=== PATIENT | female | born 1975 | race African-American/Black ===

== ENCOUNTER 2018-06-08 13:05 | Inpatient (IN) | payer BC, OTHER ==
[2018-06-08] MEDS: SOD CHLORIDE 0.45% 1,000 ML IV (01:30)
[2018-06-08 15:35] LABS: WHITE BLOOD COUNT 6.7 10^3/ul (4.8-10.8)
[2018-06-08 15:35] LABS: ABNORMAL IP MESSAGE 1; HEMATOCRIT 22.5 % (37.0-47.0); MEAN CORPUSCULAR HEMOGLOBIN 15.1 pg (29.0-33.0); MEAN CORPUSCULAR HGB CONC 24.9 g/dl (32.0-37.0); MEAN CORPUSCULAR VOLUME 60.5 fl (82.0-101.0); PLATELET COUNT 284 10^3/UL (140-415); RED BLOOD COUNT 3.72 10^6/ul (4.20-5.40); RED CELL DISTRIBUTION WIDTH 21.7 % (11.5-14.5)
[2018-06-08 15:38] LABS: ADD MAN DIFF? YES; HEMOGLOBIN 5.6 g/dl (12.0-16.0); POSITIVE DIFF @See below
[2018-06-08 15:39] LABS: PATH REVIEW? YES
[2018-06-08 16:05] LABS: IRON 10 ug/dl (35-150)
[2018-06-08 16:14] LABS: % IRON SATURATION 3 % SAT (22-52); TOTAL IRON BINDING CAPACITY 378 ug/dl (241-421)
[2018-06-08] MEDS: SOD CHLORIDE 0.9% 1,000 ML IV (16:16)
[2018-06-08 16:18] LABS: ALANINE AMINOTRANSFERASE 26 IU/L (13-69); ALBUMIN 3.6 g/dl (3.3-4.9); ALBUMIN/GLOBULIN RATIO 1.16; ALKALINE PHOSPHATASE 58 IU/L (42-121); ANION GAP 13 (8-16); ASPARTATE AMINO TRANSFERASE 24 IU/L (15-46); BILIRUBIN,INDIRECT 0.2 mg/dl (0-1.1); BILIRUBIN,TOTAL 0.2 mg/dl (0.2-1.3); BLOOD UREA NITROGEN 10 mg/dl (7-20); CARBON DIOXIDE 28 mmol/L (21-31); CHLORIDE 105 mmol/L (97-110); GLUCOSE 93 mg/dl (70-220); LACTATE DEHYDROGENASE 652 IU/L (313-618); POTASSIUM 3.8 mmol/L (3.5-5.1); SODIUM 142 mmol/L (135-144); TOTAL PROTEIN 6.7 g/dl (6.1-8.1)
[2018-06-08] MEDS ORDERED: NA PHOSPHATE/BIPHOS 133 ML ENEMA PR (16:30)
[2018-06-08] MEDS ORDERED: LORAZEPAM 2 MG INJ IV (16:30)
[2018-06-08] MEDS ORDERED: MAGNESIUM HYDROXIDE 30ML CUP PO (16:30)
[2018-06-08] MEDS ORDERED: NACL 0.9% 3 ML SYG IV (16:30)
[2018-06-08] MEDS ORDERED: ONDANSETRON 4 MG INJ IV (16:30)
[2018-06-08] MEDS ORDERED: ACETAMINOPHEN 325 MG TAB PO (16:30)
[2018-06-08] MEDS ORDERED: NITROGLYCERIN (SL) 0.4 MG TAB SL (16:30)
[2018-06-08] MEDS ORDERED: ALBUTEROL/IPRATROPIUM (NEB) 3 ML AMP HHN (16:30)
[2018-06-08] MEDS ORDERED: hydrALAzine 20 MG INJ IV (16:30)
[2018-06-08] MEDS ORDERED: DOCUSATE SODIUM 100 MG CAP PO (16:30)
[2018-06-08 16:52] LABS: FERRITIN 7.3 ng/ml (6.2-137.0)
[2018-06-08 16:55] LABS: FREE T4 (FREE THYROXINE) 1.25 ng/dl (0.64-1.79)
[2018-06-08 17:28] LABS: ANISOCYTOSIS 3+ (0-0); EOSINOPHILS % (M) 3 % (0-7); GIANT THROMBO% (M) 3 % (0-0); LYMPHOCYTES #M 1.1 10^3/ul (0.8-2.9); LYMPHOCYTES % (M) 17 % (15-51); MICROCYTOSIS 3+ (0-0); MONOCYTE #M 0.4 10^3/ul (0.3-0.9); MONOCYTES % (M) 6 % (0-11); OVALOCYTES 1+ (0-0); PLATELET MORPHOLOGY COMMENT @See below; POIKILOCYTOSIS 1+ (0-0); POLYCHROMASIA 1+ (0-0); SEGMENTED NEUTROPHILS (M) % 74 % (39-77); SMUDGE%M 19 % (0-0)
[2018-06-08 17:28] LABS: IMMEDIATE SPIN CROSSMATCH 1 3
[2018-06-08] MEDS: ENOXAPARIN 60 MG/0.6 ML SYG SC (17:33)
[2018-06-08 17:50] LABS: INR 1.06; PROTIME 13.9 Sec (11.9-14.9); PT RATIO 1.1
[2018-06-08 17:51] LABS: PARTIAL THROMBOPLASTIN TIME 35.1 Sec (25.0-35.0)
[2018-06-08] MEDS: SOD FERRIC GLUC COMPLX 125 MG in SOD CHLORIDE 0.9% 100 ML IVPB (19:00)
[2018-06-09] MEDS: morphine 2 MG INJ IV (03:02)
[2018-06-09] MEDS: SOD CHLORIDE 0.45% 1,000 ML IV ×2 (05:30→18:16)
[2018-06-09 06:52] LABS: ADD MAN DIFF? NO
[2018-06-09 07:05] LABS: ABNORMAL IP MESSAGE 1; BASOPHIL # 0.1 10^3/ul (0.0-0.1); BASOPHILS % 1.2 % (0.0-2.0); EOSINOPHILS # 0.3 10^3/ul (0.0-0.5); HEMATOCRIT 24.5 % (37.0-47.0); LYMPHOCYTES # 1.5 10^3/ul (0.8-2.9); LYMPHOCYTES % 23.7 % (15.0-51.0); MEAN CORPUSCULAR HEMOGLOBIN 17.3 pg (29.0-33.0); MEAN CORPUSCULAR HGB CONC 26.9 g/dl (32.0-37.0); MEAN CORPUSCULAR VOLUME 64.3 fl (82.0-101.0); MEAN PLATELET VOLUME 9.7 fl (7.4-10.4); MONOCYTE # 0.6 10^3/ul (0.3-0.9); MONOCYTES % 9.8 % (0.0-11.0); NEUTROPHIL # 3.9 10^3/ul (1.6-7.5); PLATELET COUNT 283 10^3/UL (140-415); RED BLOOD COUNT 3.81 10^6/ul (4.20-5.40); RED CELL DISTRIBUTION WIDTH 25.1 % (11.5-14.5)
[2018-06-09 07:05] LABS: WHITE BLOOD COUNT 6.5 10^3/ul (4.8-10.8)
[2018-06-09 07:16] LABS: POSITIVE DIFF @See below
[2018-06-09 07:22] LABS: HEMOGLOBIN 6.6 g/dl (12.0-16.0)
[2018-06-09 07:23] LABS: HEMOGLOBIN A1C 5.7 % (0-5.9)
[2018-06-09 07:29] LABS: RETICULOCYTE RBC 3.81
[2018-06-09 07:29] LABS: RETICULOCYTE COUNT # 0.026 X10^6 (0.020-0.110); RETICULOCYTE COUNT % 0.7 % (0.5-1.5)
[2018-06-09 07:32] LABS: CHOL/HDL RATIO 2.8 RATIO; HDL CHOLESTEROL 31 mg/dl (34-88); LDL CHOLESTEROL,CALCULATED 40 mg/dl; TRIGLYCERIDES 86 mg/dl (0-149)
[2018-06-09 07:32] LABS: CHOLESTEROL 88 mg/dl (100-200)
[2018-06-09 08:04] LABS: URIC ACID 4.5 mg/dl (3.1-7.9)
[2018-06-09 08:05] LABS: ANION GAP 14 (8-16); BLOOD UREA NITROGEN 9 mg/dl (7-20); CALCIUM 8.5 mg/dl (8.4-10.2); CARBON DIOXIDE 25 mmol/L (21-31); CHLORIDE 110 mmol/L (97-110); CREATININE 0.62 mg/dl (0.44-1.00); GLUCOSE 95 mg/dl (70-220); MAGNESIUM 2.1 mg/dl (1.7-2.5); PHOSPHORUS 4.4 mg/dl (2.5-4.9); POTASSIUM 4.1 mmol/L (3.5-5.1); SODIUM 145 mmol/L (135-144)
[2018-06-09 09:07] LABS: ADD MAN DIFF? NO
[2018-06-09 09:09] LABS: ERYTHROCYTE SEDIMENTATION RATE 40 mm/Hr (0-20)
[2018-06-09 09:11] LABS: FOLATE 10.4 ng/ml (2.8-20.0)
[2018-06-09 09:12] LABS: WHITE BLOOD COUNT 6.1 10^3/ul (4.8-10.8)
[2018-06-09 09:12] LABS: ABNORMAL IP MESSAGE 1; BASOPHIL # 0.1 10^3/ul (0.0-0.1); EOSINOPHILS # 0.3 10^3/ul (0.0-0.5); EOSINOPHILS % 4.4 % (0.0-7.0); HEMATOCRIT 25.4 % (37.0-47.0); LYMPHOCYTES # 1.2 10^3/ul (0.8-2.9); LYMPHOCYTES % 19.5 % (15.0-51.0); MEAN CORPUSCULAR HEMOGLOBIN 17.5 pg (29.0-33.0); MEAN CORPUSCULAR HGB CONC 27.2 g/dl (32.0-37.0); MEAN CORPUSCULAR VOLUME 64.5 fl (82.0-101.0); MEAN PLATELET VOLUME 9.7 fl (7.4-10.4); MONOCYTE # 0.6 10^3/ul (0.3-0.9); NEUTROPHIL # 3.9 10^3/ul (1.6-7.5); NEUTROPHILS % 64.8 % (39.0-77.0); PLATELET COUNT 292 10^3/UL (140-415); RED BLOOD COUNT 3.94 10^6/ul (4.20-5.40); RED CELL DISTRIBUTION WIDTH 24.5 % (11.5-14.5)
[2018-06-09 09:14] LABS: POSITIVE DIFF @See below
[2018-06-09 09:16] LABS: HEMOGLOBIN 6.9 g/dl (12.0-16.0)
[2018-06-09] MEDS: ACETAMINOPHEN 325 MG TAB PO (09:30)
[2018-06-09] MEDS: ENOXAPARIN 100 MG/ML SYG SC ×2 (10:28→21:13)
[2018-06-09 10:37] LABS: CANCER ANTIGEN 125 10.2 U/ml (0.0-35.0)
[2018-06-09 10:41] LABS: CANCER ANTIGEN 19-9 1.7 U/ml (0.0-37.0)
[2018-06-09 11:14] LABS: ADD UMIC YES; UR ASCORBIC ACID NEGATIVE (NEGATIVE); UR BACTERIA FEW /HPF (NONE SEEN); UR BILIRUBIN (Dip) NEGATIVE (NEGATIVE); UR BLOOD (Dip) 1+ mg/dL (NEGATIVE); UR CLARITY TURBID (CLEAR); UR COLOR AMBER (YELLOW); UR GLUCOSE (Dip) NEGATIVE (NEGATIVE); UR KETONES (Dip) NEGATIVE (NEGATIVE); UR LEUKOCYTE ESTERASE (Dip) 1+ Leu/ul (NEGATIVE); UR MUCUS MANY /HPF (NONE SEEN); UR NITRITE (Dip) NEGATIVE (NEGATIVE); UR RBC 5 /HPF (0-5); UR SPECIFIC GRAVITY (Dip) 1.025 (1.003-1.030); UR SQUAMOUS EPITHELIAL CELL MODERATE /HPF (FEW); UR TOTAL PROTEIN (Dip) 2+ mg/dl (NEGATIVE); UR UROBILINOGEN (Dip) NEGATIVE (NEGATIVE); UR WBC 45 /HPF (0-5)
[2018-06-09] MEDS ORDERED: LIDOCAINE 1% (MDV) 20 ML INJ (14:34)
[2018-06-09] MEDS ORDERED: HEPARIN 1000 UNITS/NS (A-LINE) 1,000 ML (14:35)
[2018-06-09] MEDS ORDERED: IODIXANOL LOCM 100 ML BTL (14:35)
[2018-06-09] MEDS ORDERED: FENTAnyl 50 MCG/ML VIAL (14:39)
[2018-06-09] MEDS ORDERED: MIDAZOLAM 1 MG/ML 2 ML INJ (14:39)
[2018-06-09] MEDS: BARIUM SULF 2% 450 ML BTL (BERRY SMOOTHIE) PO (15:38)
[2018-06-09] MEDS: SOD FERRIC GLUC COMPLX 125 MG in SOD CHLORIDE 0.9% 100 ML IVPB (16:48)
[2018-06-09] MEDS: IOHEXOL 300MG/ML 150 ML BTL (17:20)
[2018-06-09] MEDS: SOD CHLORIDE 0.9% 100 ML (17:20)
[2018-06-09] MEDS: CIPROFLOXACIN 250 MG TAB GTB (18:15)
[2018-06-09 20:14] LABS: ADD MAN DIFF? NO
[2018-06-09 20:17] LABS: WHITE BLOOD COUNT 7.5 10^3/ul (4.8-10.8)
[2018-06-09 20:17] LABS: ABNORMAL IP MESSAGE 1; BASOPHIL # 0.1 10^3/ul (0.0-0.1); BASOPHILS % 0.9 % (0.0-2.0); EOSINOPHILS # 0.2 10^3/ul (0.0-0.5); EOSINOPHILS % 2.9 % (0.0-7.0); HEMATOCRIT 27.8 % (37.0-47.0); HEMOGLOBIN 7.7 g/dl (12.0-16.0); LYMPHOCYTES # 1.3 10^3/ul (0.8-2.9); MEAN CORPUSCULAR HEMOGLOBIN 18.2 pg (29.0-33.0); MEAN CORPUSCULAR HGB CONC 27.7 g/dl (32.0-37.0); MEAN CORPUSCULAR VOLUME 65.6 fl (82.0-101.0); MEAN PLATELET VOLUME 9.1 fl (7.4-10.4); MONOCYTE # 0.6 10^3/ul (0.3-0.9); MONOCYTES % 7.4 % (0.0-11.0); NEUTROPHIL # 5.4 10^3/ul (1.6-7.5); NEUTROPHILS % 71.7 % (39.0-77.0); PLATELET COUNT 302 10^3/UL (140-415); RED BLOOD COUNT 4.24 10^6/ul (4.20-5.40); RED CELL DISTRIBUTION WIDTH 25.4 % (11.5-14.5)
[2018-06-09 20:18] LABS: POSITIVE DIFF @See below
[2018-06-10 03:01] LABS: HEMATOCRIT 23.2 % (35.0-45.0); HEMOGLOBIN 6.5 g/dL (11.7-15.5); MCH 17.5 pg (27.0-33.0); MCV 62.5 fL (80.0-100.0); RDW 24.8 % (11.0-15.0); RED BLOOD CELL COUNT 3.71 Million/uL (3.80-5.10)
[2018-06-10 05:16] LABS: PROTEIN, TOTAL 5.7 g/dL (6.1-8.1)
[2018-06-10] MEDS: CIPROFLOXACIN 250 MG TAB GTB ×2 (05:26→17:46)
[2018-06-10 08:05] LABS: ADD MAN DIFF? NO
[2018-06-10 08:09] LABS: ABNORMAL IP MESSAGE 1; BASOPHIL # 0.1 10^3/ul (0.0-0.1); EOSINOPHILS # 0.2 10^3/ul (0.0-0.5); EOSINOPHILS % 3.2 % (0.0-7.0); HEMATOCRIT 27.6 % (37.0-47.0); HEMOGLOBIN 7.8 g/dl (12.0-16.0); LYMPHOCYTES # 1.4 10^3/ul (0.8-2.9); LYMPHOCYTES % 19.7 % (15.0-51.0); MEAN CORPUSCULAR HEMOGLOBIN 18.8 pg (29.0-33.0); MEAN CORPUSCULAR HGB CONC 28.3 g/dl (32.0-37.0); MEAN CORPUSCULAR VOLUME 66.3 fl (82.0-101.0); MEAN PLATELET VOLUME 9.5 fl (7.4-10.4); MONOCYTE # 0.7 10^3/ul (0.3-0.9); MONOCYTES % 9.4 % (0.0-11.0); NEUTROPHIL # 4.8 10^3/ul (1.6-7.5); NUCLEATED RED BLOOD CELLS% 0.4 /100WBC (0.0-0.0); PLATELET COUNT 292 10^3/UL (140-415); RED BLOOD COUNT 4.16 10^6/ul (4.20-5.40); RED CELL DISTRIBUTION WIDTH 25.9 % (11.5-14.5)
[2018-06-10 08:09] LABS: WHITE BLOOD COUNT 7.2 10^3/ul (4.8-10.8)
[2018-06-10] MEDS: SOD CHLORIDE 0.45% 1,000 ML IV ×2 (08:10→12:38)
[2018-06-10 08:13] LABS: POSITIVE DIFF @See below
[2018-06-10 08:32] LABS: ANION GAP 11 (8-16); BLOOD UREA NITROGEN 7 mg/dl (7-20); CALCIUM 8.2 mg/dl (8.4-10.2); CARBON DIOXIDE 27 mmol/L (21-31); CHLORIDE 105 mmol/L (97-110); GLUCOSE 83 mg/dl (70-220); POTASSIUM 3.5 mmol/L (3.5-5.1); SODIUM 139 mmol/L (135-144)
[2018-06-10] MEDS: ENOXAPARIN 100 MG/ML SYG SC ×2 (09:00→20:47)
[2018-06-10 11:22] LABS: OCCULT BLOOD STOOL NEGATIVE (NEGATIVE)
[2018-06-10 11:27] LABS: CA27.29 27 U/mL (<38)
[2018-06-10 13:41] LABS: ANA SCREEN NEGATIVE (NEGATIVE)
[2018-06-10 15:55] LABS: TRANSFERRIN 240 mg/dL (188-341)
[2018-06-10 16:42] LABS: ALBUMIN 2.7 g/dL (3.8-4.8); ALPHA-1-GLOBULINS 0.5 g/dL (0.2-0.3); ALPHA-2-GLOBULINS 0.9 g/dL (0.5-0.9); BETA 2 GLOBULINS 0.3 g/dL (0.2-0.5); BETA GLOBULINS 0.5 g/dL (0.4-0.6); GAMMA GLOBULINS 0.8 g/dL (0.8-1.7); HAPTOGLOBIN 291 mg/dL (43-212); HOMOCYSTEINE - CARDIOVASCULAR 6.9 umol/L (<10.4)
[2018-06-10] MEDS: SOD FERRIC GLUC COMPLX 125 MG in SOD CHLORIDE 0.9% 100 ML IVPB (17:46)
[2018-06-10 21:58] LABS: CANCER ANTIGEN 15-3 21 U/mL (<32)
[2018-06-10 22:43] LABS: CARDIOLIPIN AB - IGA <11 APL; CARDIOLIPIN AB - IGG <14 GPL; CARDIOLIPIN AB - IGM <12 MPL
[2018-06-11] MEDS: CIPROFLOXACIN 250 MG TAB GTB ×2 (06:29→17:50)
[2018-06-11 06:40] LABS: ADD MAN DIFF? NO
[2018-06-11 06:48] LABS: ABNORMAL IP MESSAGE 1; BASOPHIL # 0.1 10^3/ul (0.0-0.1); BASOPHILS % 1.1 % (0.0-2.0); EOSINOPHILS # 0.3 10^3/ul (0.0-0.5); EOSINOPHILS % 5.5 % (0.0-7.0); HEMATOCRIT 29.9 % (37.0-47.0); HEMOGLOBIN 8.2 g/dl (12.0-16.0); LYMPHOCYTES # 1.3 10^3/ul (0.8-2.9); LYMPHOCYTES % 24.5 % (15.0-51.0); MEAN CORPUSCULAR HEMOGLOBIN 18.5 pg (29.0-33.0); MEAN CORPUSCULAR HGB CONC 27.4 g/dl (32.0-37.0); MEAN CORPUSCULAR VOLUME 67.3 fl (82.0-101.0); MEAN PLATELET VOLUME 9.2 fl (7.4-10.4); MONOCYTE # 0.5 10^3/ul (0.3-0.9); MONOCYTES % 9.8 % (0.0-11.0); NEUTROPHIL # 3.1 10^3/ul (1.6-7.5); NEUTROPHILS % 58.7 % (39.0-77.0); NUCLEATED RED BLOOD CELLS% 0.6 /100WBC (0.0-0.0); PLATELET COUNT 294 10^3/UL (140-415); RED BLOOD COUNT 4.44 10^6/ul (4.20-5.40); RED CELL DISTRIBUTION WIDTH 26.7 % (11.5-14.5)
[2018-06-11 06:48] LABS: WHITE BLOOD COUNT 5.3 10^3/ul (4.8-10.8)
[2018-06-11 06:53] LABS: POSITIVE DIFF @See below
[2018-06-11 07:15] LABS: ANION GAP 10 (8-16); BLOOD UREA NITROGEN 10 mg/dl (7-20); CALCIUM 8.3 mg/dl (8.4-10.2); CARBON DIOXIDE 28 mmol/L (21-31); CHLORIDE 106 mmol/L (97-110); CREATININE 0.61 mg/dl (0.44-1.00); GLUCOSE 103 mg/dl (70-220); POTASSIUM 3.6 mmol/L (3.5-5.1); SODIUM 140 mmol/L (135-144)
[2018-06-11] MEDS: ENOXAPARIN 100 MG/ML SYG SC ×2 (09:36→21:34)
[2018-06-11] MEDS: SOD CHLORIDE 0.45% 1,000 ML IV (10:50)
[2018-06-11 11:22] LABS: HEMOGLOBIN A 98.2 % (>96.0); HEMOGLOBIN A2 (QUANT) 1.8 % (1.8-3.5); HEMOGLOBIN F <1.0 % (<2.0)
[2018-06-11] MEDS: SOD FERRIC GLUC COMPLX 125 MG in SOD CHLORIDE 0.9% 100 ML IVPB (16:37)
[2018-06-11 18:51] LABS: ANTI-THROMBIN III 24 mg/dL (19-30)
[2018-06-12] MEDS: CIPROFLOXACIN 250 MG TAB GTB ×2 (06:24→18:04)
[2018-06-12 07:13] LABS: ADD MAN DIFF? NO
[2018-06-12 07:18] LABS: ABNORMAL IP MESSAGE 1; BASOPHIL # 0.1 10^3/ul (0.0-0.1); BASOPHILS % 1.3 % (0.0-2.0); EOSINOPHILS # 0.3 10^3/ul (0.0-0.5); EOSINOPHILS % 4.7 % (0.0-7.0); HEMATOCRIT 28.4 % (37.0-47.0); HEMOGLOBIN 7.6 g/dl (12.0-16.0); LYMPHOCYTES # 1.2 10^3/ul (0.8-2.9); LYMPHOCYTES % 19.5 % (15.0-51.0); MEAN CORPUSCULAR HEMOGLOBIN 18.3 pg (29.0-33.0); MEAN CORPUSCULAR HGB CONC 26.8 g/dl (32.0-37.0); MEAN CORPUSCULAR VOLUME 68.4 fl (82.0-101.0); MEAN PLATELET VOLUME 9.6 fl (7.4-10.4); MONOCYTE # 0.6 10^3/ul (0.3-0.9); MONOCYTES % 9.6 % (0.0-11.0); NEUTROPHIL # 4.1 10^3/ul (1.6-7.5); NEUTROPHILS % 64.4 % (39.0-77.0); PLATELET COUNT 297 10^3/UL (140-415); RED BLOOD COUNT 4.15 10^6/ul (4.20-5.40); RED CELL DISTRIBUTION WIDTH 28.5 % (11.5-14.5)
[2018-06-12 07:18] LABS: WHITE BLOOD COUNT 6.4 10^3/ul (4.8-10.8)
[2018-06-12 07:37] LABS: ANION GAP 11 (8-16); BLOOD UREA NITROGEN 9 mg/dl (7-20); CALCIUM 8.6 mg/dl (8.4-10.2); CARBON DIOXIDE 26 mmol/L (21-31); CHLORIDE 106 mmol/L (97-110); GLUCOSE 97 mg/dl (70-220); POTASSIUM 3.9 mmol/L (3.5-5.1); SODIUM 139 mmol/L (135-144)
[2018-06-12 07:44] LABS: POSITIVE DIFF @See below
[2018-06-12] MEDS: ENOXAPARIN 100 MG/ML SYG SC ×2 (09:56→20:39)
[2018-06-12] MEDS: ACETAMINOPHEN 325 MG TAB PO ×2 (11:04→23:53)
[2018-06-12 16:55] LABS: IMMEDIATE SPIN CROSSMATCH 1 2
[2018-06-12] MEDS: DOCUSATE SODIUM 100 MG CAP PO ×2 (18:05→20:41)
[2018-06-12] MEDS: HYDROCODONE/APAP (5/325) TAB PO (18:21)
[2018-06-12] MEDS: SOD FERRIC GLUC COMPLX 125 MG in SOD CHLORIDE 0.9% 100 ML IVPB (21:27)
[2018-06-13] MEDS: CIPROFLOXACIN 250 MG TAB GTB ×2 (04:51→17:36)
[2018-06-13] MEDS ORDERED: SUCCINYLCHOLINE CHLORIDE 100 MG/5 ML SYG IV (07:00)
[2018-06-13] MEDS ORDERED: ONDANSETRON 4 MG INJ (07:00)
[2018-06-13] MEDS ORDERED: CEFAZOLIN 1 GM INJ (07:00)
[2018-06-13] MEDS ORDERED: DEXAMETHASONE 4 MG/ML 1 ML INJ (07:00)
[2018-06-13 07:17] LABS: ADD MAN DIFF? NO
[2018-06-13 07:23] LABS: WHITE BLOOD COUNT 6.2 10^3/ul (4.8-10.8)
[2018-06-13 07:23] LABS: ABNORMAL IP MESSAGE 1; BASOPHIL # 0.1 10^3/ul (0.0-0.1); BASOPHILS % 1.1 % (0.0-2.0); EOSINOPHILS # 0.3 10^3/ul (0.0-0.5); EOSINOPHILS % 4.9 % (0.0-7.0); HEMATOCRIT 33.6 % (37.0-47.0); HEMOGLOBIN 9.7 g/dl (12.0-16.0); LYMPHOCYTES # 1.3 10^3/ul (0.8-2.9); LYMPHOCYTES % 20.9 % (15.0-51.0); MEAN CORPUSCULAR HEMOGLOBIN 20.6 pg (29.0-33.0); MEAN CORPUSCULAR HGB CONC 28.9 g/dl (32.0-37.0); MEAN CORPUSCULAR VOLUME 71.5 fl (82.0-101.0); MEAN PLATELET VOLUME 9.4 fl (7.4-10.4); MONOCYTE # 0.6 10^3/ul (0.3-0.9); MONOCYTES % 9.7 % (0.0-11.0); NEUTROPHIL # 3.9 10^3/ul (1.6-7.5); NEUTROPHILS % 62.8 % (39.0-77.0); PLATELET COUNT 274 10^3/UL (140-415); POSITIVE DIFF @See below; RED CELL DISTRIBUTION WIDTH 29.4 % (11.5-14.5)
[2018-06-13 07:42] LABS: ANION GAP 13 (8-16); BLOOD UREA NITROGEN 8 mg/dl (7-20); CALCIUM 8.6 mg/dl (8.4-10.2); CARBON DIOXIDE 26 mmol/L (21-31); CHLORIDE 106 mmol/L (97-110); CREATININE 0.62 mg/dl (0.44-1.00); GLUCOSE 99 mg/dl (70-220); SODIUM 141 mmol/L (135-144)
[2018-06-13] MEDS: FERROUS SULFATE (EC) 325 MG TAB PO ×2 (08:56→21:48)
[2018-06-13] MEDS: ENOXAPARIN 100 MG/ML SYG SC ×2 (08:56→20:22)
[2018-06-13] MEDS: DOCUSATE SODIUM 100 MG CAP PO ×2 (08:56→20:22)
[2018-06-13] MEDS ORDERED: NEOSTIGMINE 3 MG/3 ML SYRINGE (12:51)
[2018-06-13] MEDS ORDERED: GLYCOPYRROLATE 0.4 MG INJ (12:51)
[2018-06-13] MEDS ORDERED: LIDOCAINE 2% (SDV) 5 ML INJ (12:51)
[2018-06-13] MEDS ORDERED: PROPOFOL 20 ML (12:51)
[2018-06-13] MEDS ORDERED: ROCURONIUM 50 MG INJ (12:51)
[2018-06-13] MEDS ORDERED: FENTAnyl 50 MCG/ML VIAL (12:52)
[2018-06-13] MEDS ORDERED: MIDAZOLAM 1 MG/ML 2 ML INJ (12:52)
[2018-06-13] MEDS ORDERED: ONDANSETRON 4 MG INJ IV (15:00)
[2018-06-13] MEDS ORDERED: HYDROmorphONE 1 MG/5 ML IV SYRINGE IV ×3 (15:00→15:07)
[2018-06-13] MEDS ORDERED: OXYCODONE/ACETAMINOPHEN (5/325) TAB PO (15:00)
[2018-06-13] MEDS ORDERED: EPHEDrine SULFATE 50 MG/5 ML SYG IV (15:00)
[2018-06-13] MEDS ORDERED: MIDAZOLAM 1 MG/ML 2 ML INJ IV (15:00)
[2018-06-13] MEDS ORDERED: hydrALAzine 20 MG INJ IV (15:00)
[2018-06-13] MEDS ORDERED: morphine (1 MG/ML) 10ML SYRINGE IV ×3 (15:00)
[2018-06-13] MEDS ORDERED: FENTAnyl 50 MCG/ML VIAL IV ×2 (15:00)
[2018-06-13] MEDS ORDERED: LABETALOL HCL 20MG INJ IV (15:00)
[2018-06-13] MEDS ORDERED: MEPERIDINE 25 MG INJ IV (15:00)
[2018-06-13] MEDS ORDERED: DIPHENHYDRAMINE 50 MG INJ IV (15:00)
[2018-06-13] MEDS ORDERED: ATROPINE 1 MG/10 ML SYRINGE IV (15:00)
[2018-06-13] MEDS: HYDROmorphONE 1 MG/5 ML IV SYRINGE IV (15:13)
[2018-06-13] MEDS: ONDANSETRON 4 MG INJ IV (15:14)
[2018-06-13] MEDS: OXYCODONE/ACETAMINOPHEN (5/325) TAB PO (15:41)
[2018-06-13] MEDS: SOD FERRIC GLUC COMPLX 125 MG in SOD CHLORIDE 0.9% 100 ML IVPB (21:40)
[2018-06-13] MEDS: HYDROCODONE/APAP (5/325) TAB PO (22:42)
[2018-06-14] MEDS: CIPROFLOXACIN 250 MG TAB GTB (07:06)
[2018-06-14] MEDS: HYDROCODONE/APAP (5/325) TAB PO (07:06)
[2018-06-14 07:29] LABS: ADD MAN DIFF? NO
[2018-06-14 07:31] LABS: WHITE BLOOD COUNT 10.2 10^3/ul (4.8-10.8)
[2018-06-14 07:31] LABS: ABNORMAL IP MESSAGE 1; BASOPHILS % 0.3 % (0.0-2.0); EOSINOPHILS # 0.1 10^3/ul (0.0-0.5); EOSINOPHILS % 0.5 % (0.0-7.0); HEMATOCRIT 34.5 % (37.0-47.0); HEMOGLOBIN 9.9 g/dl (12.0-16.0); LYMPHOCYTES # 1.1 10^3/ul (0.8-2.9); LYMPHOCYTES % 11.2 % (15.0-51.0); MEAN CORPUSCULAR HEMOGLOBIN 20.5 pg (29.0-33.0); MEAN CORPUSCULAR HGB CONC 28.7 g/dl (32.0-37.0); MEAN CORPUSCULAR VOLUME 71.6 fl (82.0-101.0); MEAN PLATELET VOLUME 9.9 fl (7.4-10.4); MONOCYTE # 0.7 10^3/ul (0.3-0.9); MONOCYTES % 6.8 % (0.0-11.0); NEUTROPHIL # 8.3 10^3/ul (1.6-7.5); NEUTROPHILS % 80.9 % (39.0-77.0); PLATELET COUNT 283 10^3/UL (140-415); RED BLOOD COUNT 4.82 10^6/ul (4.20-5.40); RED CELL DISTRIBUTION WIDTH 30.5 % (11.5-14.5)
[2018-06-14 07:35] LABS: POSITIVE DIFF @See below
[2018-06-14 07:59] LABS: ANION GAP 12 (8-16); BLOOD UREA NITROGEN 8 mg/dl (7-20); CALCIUM 8.8 mg/dl (8.4-10.2); CARBON DIOXIDE 27 mmol/L (21-31); CHLORIDE 106 mmol/L (97-110); CREATININE 0.62 mg/dl (0.44-1.00); GLUCOSE 111 mg/dl (70-220); SODIUM 141 mmol/L (135-144)
[2018-06-14] MEDS: FERROUS SULFATE (EC) 325 MG TAB PO (08:51)
[2018-06-14] MEDS: DOCUSATE SODIUM 100 MG CAP PO (08:52)
[2018-06-14] MEDS: ENOXAPARIN 100 MG/ML SYG SC (10:16)
== END 2018-06-14 15:05 | disposition home or self-care (01) | DRG 253 ==
LOC: TEL 16:18 → E/R 13:05
PROC: 06H03DZ Insertion of Intraluminal Device into Inferior Vena Cava, Percutaneous Approach (ICD-10-PCS; principal; 2018-06-09 12:00)
PROC: 0U5B8ZZ Destruction of Endometrium, Via Natural or Artificial Opening Endoscopic (ICD-10-PCS; 2018-06-09 14:25)
PROC: 0UDB8ZZ Extraction of Endometrium, Via Natural or Artificial Opening Endoscopic (ICD-10-PCS; 2018-06-09 14:25)
PROC: 30233N1 Transfusion of Nonautologous Red Blood Cells into Peripheral Vein, Percutaneous Approach (ICD-10-PCS; 2018-06-09 14:25)
DX: I82.411 Acute embolism and thrombosis of right femoral vein (principal); D62 Acute posthemorrhagic anemia; D50.9 Iron deficiency anemia, unspecified; E66.9 Obesity, unspecified; D25.9 Leiomyoma of uterus, unspecified; N92.0 Excessive and frequent menstruation with regular cycle; Z68.39 Body mass index [BMI] 39.0-39.9, adult; Z87.891 Personal history of nicotine dependence
CPT/HCPCS: 36430; 37191; 71270; 74178; 76856; 80048; 80053; 80061; 81001; 81240; 82270; 82306; 82607; 82728; 82746; 83010; 83020; 83036; 83090; 83540; 83615; 83735; 83890; 84100; 84155; 84165; 84439; 84443; 84466; 84560; 85025; 85045; 85300; 85302; 85305; 85610; 85613; 85651; 85730; 86038; 86147; 86300; 86301; 86304; 86850; 86900; 86901; 86920; 88305; 88331; 93005; 93971; 99291-25

== ENCOUNTER 2018-06-18 08:44 | Emergency (ER) | payer BC ==
[2018-06-18 09:36] LABS: ADD MAN DIFF? NO
[2018-06-18 09:43] LABS: WHITE BLOOD COUNT 8.1 10^3/ul (4.8-10.8)
[2018-06-18 09:43] LABS: ABNORMAL IP MESSAGE 1; BASOPHIL # 0.1 10^3/ul (0.0-0.1); EOSINOPHILS # 0.1 10^3/ul (0.0-0.5); EOSINOPHILS % 1.5 % (0.0-7.0); HEMOGLOBIN 10.9 g/dl (12.0-16.0); LYMPHOCYTES # 1.2 10^3/ul (0.8-2.9); LYMPHOCYTES % 15.2 % (15.0-51.0); MEAN CORPUSCULAR HEMOGLOBIN 21.3 pg (29.0-33.0); MEAN CORPUSCULAR HGB CONC 28.7 g/dl (32.0-37.0); MEAN CORPUSCULAR VOLUME 74.4 fl (82.0-101.0); MEAN PLATELET VOLUME 9.7 fl (7.4-10.4); MONOCYTE # 0.5 10^3/ul (0.3-0.9); MONOCYTES % 6.3 % (0.0-11.0); NEUTROPHIL # 6.2 10^3/ul (1.6-7.5); NEUTROPHILS % 75.8 % (39.0-77.0); PLATELET COUNT 302 10^3/UL (140-415); RED BLOOD COUNT 5.11 10^6/ul (4.20-5.40)
[2018-06-18 09:56] LABS: ALANINE AMINOTRANSFERASE 26 IU/L (13-69); ALBUMIN/GLOBULIN RATIO 1.11; ALKALINE PHOSPHATASE 61 IU/L (42-121); ANION GAP 15 (8-16); ASPARTATE AMINO TRANSFERASE 23 IU/L (15-46); BILIRUBIN,INDIRECT 0.3 mg/dl (0-1.1); BILIRUBIN,TOTAL 0.3 mg/dl (0.2-1.3); BLOOD UREA NITROGEN 10 mg/dl (7-20); CALCIUM 9.7 mg/dl (8.4-10.2); CARBON DIOXIDE 29 mmol/L (21-31); CHLORIDE 103 mmol/L (97-110); CREATININE 0.63 mg/dl (0.44-1.00); GLUCOSE 108 mg/dl (70-220); POTASSIUM 4.1 mmol/L (3.5-5.1); SODIUM 143 mmol/L (135-144); TOTAL PROTEIN 7.6 g/dl (6.1-8.1)
[2018-06-18 10:03] LABS: POSITIVE DIFF @See below
[2018-06-18 10:08] LABS: INR 1.23; PROTIME 15.7 Sec (11.9-14.9); PT RATIO 1.2
== END 2018-06-18 11:40 | disposition home or self-care (01) ==
LOC: E/R 08:44
DX: N92.1 Excessive and frequent menstruation with irregular cycle (principal); I82.401 Acute embolism and thrombosis of unspecified deep veins of right lower extremity; Z85.42 Personal history of malignant neoplasm of other parts of uterus; Z79.01 Long term (current) use of anticoagulants
CPT/HCPCS: 36415; 80053; 85025; 85610; 85730; 99283

== ENCOUNTER 2019-03-17 10:58 | Inpatient (IN) | payer BC ==
[2019-03-16] MEDS: CEFAZOLIN 2 GM/50 ML (PMX) 50 ML IVPB (14:17)
[~2019-03-17 10:58] MED LIST: NEOSTIGMINE 3 MG/3 ML SYRINGE
[2019-03-17] MEDS: LACTATED RINGER'S 1,000 ML IV ×4 (12:24→21:59)
[2019-03-17] MEDS ORDERED: GLYCOPYRROLATE 0.4 MG INJ ×3 (13:57→14:13)
[2019-03-17] MEDS ORDERED: SUCCINYLCHOLINE CHLORIDE 100 MG/5 ML SYG IV (13:57)
[2019-03-17] MEDS ORDERED: NEOSTIGMINE 3 MG/3 ML SYRINGE ×2 (13:57→14:13)
[2019-03-17] MEDS ORDERED: PROPOFOL 20 ML (13:57)
[2019-03-17] MEDS ORDERED: MEPERIDINE 100 MG INJ (13:57)
[2019-03-17] MEDS ORDERED: ROCURONIUM 50 MG INJ ×2 (13:57→14:12)
[2019-03-17] MEDS ORDERED: LIDOCAINE 2% (SDV) 5 ML INJ (13:57)
[2019-03-17] MEDS ORDERED: CEFAZOLIN 1 GM INJ (14:12)
[2019-03-17] MEDS ORDERED: ONDANSETRON 4 MG INJ (14:12)
[2019-03-17] MEDS ORDERED: METOCLOPRAMIDE 10 MG INJ (14:12)
[2019-03-17] MEDS ORDERED: hydrALAzine 20 MG INJ IV (15:30)
[2019-03-17] MEDS ORDERED: OXYCODONE/ACETAMINOPHEN (5/325) TAB PO ×2 (15:30)
[2019-03-17] MEDS ORDERED: MEPERIDINE 25 MG INJ IV (15:30)
[2019-03-17] MEDS ORDERED: DIPHENHYDRAMINE 50 MG INJ IV (15:30)
[2019-03-17] MEDS ORDERED: HYDROmorphONE 1 MG/5 ML IV SYRINGE IV (15:30)
[2019-03-17] MEDS ORDERED: FENTAnyl 50 MCG/ML VIAL IV ×2 (15:30)
[2019-03-17] MEDS ORDERED: EPHEDrine 25 MG/5 ML SYG IV (15:30)
[2019-03-17] MEDS ORDERED: MIDAZOLAM 1 MG/ML 2 ML INJ IV (15:30)
[2019-03-17] MEDS ORDERED: LABETALOL HCL 20MG INJ IV (15:30)
[2019-03-17] MEDS ORDERED: FUROSEMIDE 20 MG INJ (16:20)
[2019-03-17] MEDS: INDIGOTINDISULFONATE 0.8% 5 ML INJ (16:22)
[2019-03-17] MEDS ORDERED: FENTAnyl 50 MCG/ML VIAL (17:16)
[2019-03-17] MEDS: HYDROmorphONE 1 MG/5 ML IV SYRINGE IV ×2 (17:49→18:10)
[2019-03-17] MEDS: ONDANSETRON 4 MG INJ IV (17:50)
[2019-03-17] MEDS: FENTAnyl 50 MCG/ML VIAL IV ×3 (17:50→18:31)
[2019-03-17] MEDS: METOCLOPRAMIDE 10 MG INJ IV (19:11)
[2019-03-17] MEDS: OXYCODONE/ACETAMINOPHEN (5/325) TAB PO (20:47)
[2019-03-18] MEDS: OXYCODONE/ACETAMINOPHEN (5/325) TAB PO ×5 (00:48→21:57)
[2019-03-18] MEDS: ONDANSETRON 4 MG INJ IV (05:12)
[2019-03-18 05:33] LABS: ADD MAN DIFF? NO
[2019-03-18] MEDS: LACTATED RINGER'S 1,000 ML IV ×5 (05:38→21:51)
[2019-03-18 05:41] LABS: WHITE BLOOD COUNT 10.2 10^3/ul (4.8-10.8)
[2019-03-18 05:41] LABS: BASOPHILS % 0.2 % (0.0-2.0); HEMATOCRIT 32.7 % (37.0-47.0); HEMOGLOBIN 10.5 g/dl (12.0-16.0); LYMPHOCYTES # 0.7 10^3/ul (0.8-2.9); LYMPHOCYTES % 6.8 % (15.0-51.0); MEAN CORPUSCULAR HEMOGLOBIN 29.7 pg (29.0-33.0); MEAN CORPUSCULAR HGB CONC 32.1 g/dl (32.0-37.0); MEAN CORPUSCULAR VOLUME 92.4 fl (82.0-101.0); MEAN PLATELET VOLUME 10.8 fl (7.4-10.4); MONOCYTE # 0.8 10^3/ul (0.3-0.9); MONOCYTES % 8.1 % (0.0-11.0); NEUTROPHIL # 8.7 10^3/ul (1.6-7.5); NEUTROPHILS % 84.7 % (39.0-77.0); PLATELET COUNT 267 10^3/UL (140-415); RED BLOOD COUNT 3.54 10^6/ul (4.20-5.40); RED CELL DISTRIBUTION WIDTH 11.9 % (11.5-14.5)
[2019-03-18 06:12] LABS: ANION GAP 8 (5-13); BLOOD UREA NITROGEN 8 mg/dl (7-20); CARBON DIOXIDE 27 mmol/L (21-31); CHLORIDE 104 mmol/L (97-110); CREATININE 0.64 mg/dl (0.44-1.00); Estimated GFR > 60 mL/min (>60); GLUCOSE 143 mg/dl (70-220); POTASSIUM 3.7 mmol/L (3.5-5.1); SODIUM 139 mmol/L (135-144)
[2019-03-18] MEDS: APIXABAN 5 MG TABLET PO (22:49)
[2019-03-19] MEDS: OXYCODONE/ACETAMINOPHEN (5/325) TAB PO ×4 (03:37→21:17)
[2019-03-19] MEDS: LACTATED RINGER'S 1,000 ML IV (05:51)
[2019-03-19] MEDS: APIXABAN 5 MG TABLET PO ×2 (08:13→20:34)
[2019-03-20] MEDS: OXYCODONE/ACETAMINOPHEN (5/325) TAB PO (09:28)
[2019-03-20] MEDS: APIXABAN 5 MG TABLET PO (09:28)
== END 2019-03-20 11:00 | disposition home or self-care (01) | DRG 742 ==
LOC: REC 10:58 → MS1 19:51
PROC: 0UT90ZL Resection of Uterus, Supracervical, Open Approach (ICD-10-PCS; principal; 2019-03-17 13:00)
PROC: 0UT70ZZ Resection of Bilateral Fallopian Tubes, Open Approach (ICD-10-PCS; 2019-03-17 13:00)
PROC: 0UBC0ZZ Excision of Cervix, Open Approach (ICD-10-PCS; 2019-03-17 13:00)
DX: D25.9 Leiomyoma of uterus, unspecified (principal); Z68.41 Body mass index [BMI] 40.0-44.9, adult; N92.1 Excessive and frequent menstruation with irregular cycle; E66.9 Obesity, unspecified; D64.9 Anemia, unspecified; Z86.718 Personal history of other venous thrombosis and embolism
CPT/HCPCS: 80048; 84703; 85025; 86850; 86900; 86901; 88307